=== PATIENT | female | born 1955 | race Caucasian/White ===

== ENCOUNTER → 2022-10-19 15:07 | Outpatient (BNVA) | payer MEDICARE, SELFPAY | PROVIDERS: Visit Provider Nurse Practitioner Family | DX: J06.9 Acute upper respiratory infection, unspecified (principal); R05.9 Cough, unspecified; J45.909 Unspecified asthma, uncomplicated; E78.5 Hyperlipidemia, unspecified; J30.2 Other seasonal allergic rhinitis; E55.9 Vitamin D deficiency, unspecified; F41.9 Anxiety disorder, unspecified; F32.A Depression, unspecified; E66.9 Obesity, unspecified; M81.0 Age-related osteoporosis without current pathological fracture; I10 Essential (primary) hypertension; R73.03 Prediabetes; Z12.31 Encounter for screening mammogram for malignant neoplasm of breast; G47.33 Obstructive sleep apnea (adult) (pediatric); M19.90 Unspecified osteoarthritis, unspecified site | CPT/HCPCS: 80053; 80061; 83036; 84443 ==

== ENCOUNTER 2022-11-11 13:17 | Outpatient (CLI) | payer MEDICARE, SELFPAY ==
--- NOTE | 2022-11-11 13:30 | XR_ITS ---
WS: [id number] DEXA (DUAL ENERGY X-RAY ABSORPTIOMETRY) Bone mineral density was performed using a in3Depth machine. HISTORY: screening COMPARISON: None available. Lumbar spine BMD (L1-L4): 1.329 g/cm2 T score: 1.2 Z score: 2.0 Total hip BMD: Left: 0.899 g/cm2. T score: -0.9 Z score: -0.1 Right: 0.881 g/cm2. T score: -1.0 Z score: -0.2 10 year probability of a major osteoporotic fracture is 11.9%. Mild RIGHT curvature lumbar spine. XR/XR DEXA axial skeleton* [id number] IMPRESSION: NORMAL BONE MINERAL DENSITY based upon the WHO classification for females.
--- NOTE | 2022-11-11 13:34 | MM_ITS ---
WS: [id number] Bilateral screening 3D tomosynthesis digital mammogram, 11/11/2022 Clinical Data: screening Comparison: None. Findings: The breast parenchymal pattern shows fibroglandular tissue. No spiculated masses or clustered calcifi cations are seen. There are no secondary signs of carcinoma. There are clustered dermal calcification s in the lateral aspect of the right breast at the 9:00 position. There are intact bilateral augmenta tion mammoplasty implants. MM/[place] [id number] Impression: 1. Negative bilateral mammogram with intact bilateral mammoplasty implants. 2. Recommend annual screening mammograms. BIRADS: 2-Benign FOLLOW UP: 1 Year Follow-up The CAD linen checker was used.
== END 2022-11-11 13:18 | disposition home or self-care (01) ==
LOC: RAD 13:24
PROVIDERS: Visit Provider Nurse Practitioner Family
DX: Z13.820 Encounter for screening for osteoporosis (principal); Z12.31 Encounter for screening mammogram for malignant neoplasm of breast
CPT/HCPCS: 77063; 77067; 77080

== ENCOUNTER → 2022-11-24 11:43 | Outpatient (BNVA) | payer MEDICARE, SELFPAY | PROVIDERS: PCP Nurse Practitioner Family; Visit Provider Nurse Practitioner Family | DX: N20.0 Calculus of kidney (principal); R31.9 Hematuria, unspecified | CPT/HCPCS: 74018 ==

== ENCOUNTER → 2023-01-17 13:55 | Outpatient (BNVA) | payer MEDICARE, SELFPAY | PROVIDERS: PCP Nurse Practitioner Family; Visit Provider Nurse Practitioner Family | DX: M17.12 Unilateral primary osteoarthritis, left knee (principal); M25.551 Pain in right hip; E11.9 Type 2 diabetes mellitus without complications; I10 Essential (primary) hypertension; E78.5 Hyperlipidemia, unspecified; E66.9 Obesity, unspecified | CPT/HCPCS: 73502; 73562; 80053; 80061; 83036 ==

== ENCOUNTER → 2023-07-10 11:46 | Outpatient (BNVA) | payer MEDICARE, SELFPAY | PROVIDERS: PCP Nurse Practitioner Family; Visit Provider Nurse Practitioner Family | DX: E78.5 Hyperlipidemia, unspecified (principal); F41.9 Anxiety disorder, unspecified; I10 Essential (primary) hypertension; E66.9 Obesity, unspecified; R73.03 Prediabetes | CPT/HCPCS: 80053; 80061; 83036 ==

== ENCOUNTER → 2024-01-30 08:46 | Outpatient (BNVA) | payer MEDICARE, SELFPAY | PROVIDERS: PCP Nurse Practitioner Family; Visit Provider Nurse Practitioner Family | DX: F41.9 Anxiety disorder, unspecified (principal); F32.A Depression, unspecified; I10 Essential (primary) hypertension; E78.5 Hyperlipidemia, unspecified; E66.9 Obesity, unspecified; R73.03 Prediabetes; E55.9 Vitamin D deficiency, unspecified | CPT/HCPCS: 80053; 80061; 82306; 83036; 84443; 85025 ==

== ENCOUNTER 2024-02-02 09:52 | Outpatient (CLI) | payer MEDICARE, SELFPAY ==
--- NOTE | 2024-02-02 10:00 | MM_ITS ---
WS: [id number] BILATERAL SCREENING DIGITAL TOMOSYNTHESIS MAMMOGRAM WITH CAD HISTORY: screening COMPARISON: 11/11/2022 Bilateral CC and MLO views with tomosynthesis and synthetic mammography submitted. Computer aided det ection analyzed. Breast composition: There are scattered areas of fibroglandular density. No suspicious masses, microc alcifications or architectural distortion. Lucent centered skin calcifications in the anterior inferi or RIGHT breast. IMPRESSION: MM/[place] [id number] BI-RADS: 2-Benign FOLLOW UP: 1 Year Follow-up
== END 2024-02-02 09:53 | disposition home or self-care (01) ==
LOC: RAD 09:53
PROVIDERS: PCP Nurse Practitioner Family; Visit Provider Nurse Practitioner Family
DX: Z12.31 Encounter for screening mammogram for malignant neoplasm of breast (principal); R92.323 Mammographic fibroglandular density, bilateral breasts; R92.1 Mammographic calcification found on diagnostic imaging of breast
CPT/HCPCS: 77063; 77067

== ENCOUNTER → 2024-02-12 10:22 | Outpatient (BNVA) | payer MEDICARE, SELFPAY | PROVIDERS: PCP Nurse Practitioner Family; Referring Provider Nurse Practitioner Family; Visit Provider Surgery | DX: Z12.11 Encounter for screening for malignant neoplasm of colon (principal) | CPT/HCPCS: 99024; 99204 ==

== ENCOUNTER → 2024-05-24 11:56 | Outpatient (BNVA) | payer MEDICARE, SELFPAY | PROVIDERS: PCP Nurse Practitioner Family; Visit Provider Nurse Practitioner Family | DX: I10 Essential (primary) hypertension (principal); F41.9 Anxiety disorder, unspecified; F32.A Depression, unspecified; E78.2 Mixed hyperlipidemia; R73.03 Prediabetes; E55.9 Vitamin D deficiency, unspecified; E66.9 Obesity, unspecified | CPT/HCPCS: 80053; 80061; 83036; 85025 ==

== ENCOUNTER 2024-07-10 06:31 | Day surgery (SDC) | payer MEDICARE, SELFPAY ==
[2024-07-10 06:50] VITALS: BP 166/79; PULSE 75; RESP 16; TEMP 36.1; O2SAT 95; BMI 37.9
[2024-07-10] MEDS: sodium chloride 0.9% 1,000 ML 30 ML IV (07:00)
--- NOTE | 2024-07-10 07:16 | ANES.PREANE2 ---
Pre-Anesthetic Assessment Height/Weight: Height 5 ft 3 in Weight 214 lb Temp Pulse Resp BP Pulse Ox O2 Del Method 97.0 F L 75 16 166/79 95 Room Air 07/10/24 06:50 07/10/24 06:50 07/10/24 06:50 07/10/24 06:50 07/10/24 06:50 07/10/24 06:50 Preop Diagnosis: Screening colonoscopy Operation Date: 07/10/24 07:30 Proposed Procedures p Colonoscopy - 93443, g0121, z12.11(Not Applicable) - Bob Pena, DO Was Beta Silvano taken within 24 hours: Yes Was Clonidine taken within 24 hours: N/A Last intake: Intake Last Liquid Date 07/09/24 Last Liquid Time 23:00 Last Solid Date 07/08/24 Last Solid Time 18:00 Social No alcohol and No tobacco Exam alert, oriented x 3, clear to auscultation bilaterally and regular rate & rhythm Airway Submandibular: within normal limits Cervical ROM: within normal limits Mallampati: Class IV Comments: Comments: Very limited mouth opening. Patient states that she requires fiberoptic intubation Anesthetic Plan ASA status: 3 Anesthesia: MAC Other: No prior issues with anesthesia besides very difficult intubation Completed bowel prep Uncontrolled hypertension, on metoprolol. BP 166/79 this a.m. Moderate/severe asthma. Hospitalized in May. Maintained on inhalers currently Difficult intubation noted will have fiberoptic available Labs in May reviewed and acceptable for surgery Plan for MAC anesthetic Medications/Allergies Home Medications Medication Instructions Recorded Confirmed Last Taken Type flaxseed oil 1,000 mg capsule 1,000 mg PO DAILY 10/19/22 07/10/24 07/09/24 History turmeric root extract 500 mg tablet 500 mg PO DAILY 10/19/22 07/08/24 Unknown History zinc acetate 50 mg (zinc) capsule 50 mg PO DAILY 10/19/22 07/10/24 07/09/24 History ascorbic acid (vitamin C) 1,000 mg 1 g PO Q6H 90 days #360 caps 07/07/23 07/10/24 07/09/24 Rx capsule albuterol sulfate 2.5 mg/3 mL 2.5 mg (3 mL) inhalation Q6H #180 01/30/24 07/10/24 3 Months Ago Rx (0.083 %) solution for nebulization mL ~04/09/24 cetirizine 10 mg tablet 10 mg PO DAILY PRN allergy 01/30/24 07/10/24 07/09/24 Rx symptoms 90 days #90 tabs albuterol 90 mcg-budesonide 80 2 inh inhalation 6XD PRN shortness 03/14/24 07/10/24 1 Week Ago Rx mcg/actuation HFA aerosol inhaler of breath #10.7 grams ~07/01/24 (Airsupra) atorvastatin 40 mg tablet 40 mg PO DAILY 90 days #90 tabs 04/18/24 07/10/24 07/08/24 Rx benzonatate 100 mg capsule 100 mg PO TID PRN cough #90 caps 04/18/24 07/10/24 Unknown Rx cholecalciferol (vitamin D3) 125 125 mcg PO DAILY 90 days #90 caps 04/18/24 07/10/24 07/09/24 Rx mcg (5,000 unit) capsule fluoxetine 10 mg capsule 10 mg PO DAILY 90 days #90 caps 04/18/24 07/08/24 07/08/24 Rx fluticasone fur. 100 mcg-umeclid 1 inh inhalation DAILY #60 ea 04/18/24 07/10/24 07/10/24 Rx 62.5 mcg-vilant 25 mcg inhalat.powder (Trelegy Ellipta) meloxicam 15 mg tablet 15 mg PO DAILY 90 days #90 tabs 04/18/24 07/08/24 07/06/24 Rx metoprolol tartrate 25 mg tablet 25 mg PO BID 90 days #180 tabs 04/18/24 07/10/24 07/10/24 Rx montelukast 10 mg tablet 10 mg PO DAILY 90 days #90 tabs 04/18/24 07/10/24 07/09/24 Rx raloxifene 60 mg tablet (Evista) 60 mg PO DAILY 90 days #90 tabs 04/18/24 07/10/24 07/09/24 Rx blood sugar diagnostic (Contour #100 ea 05/24/24 07/08/24 Unknown Rx Test Strips) blood-glucose meter #1 ea 05/24/24 07/08/24 Unknown Rx lancets 30 gauge (Advocate Lancet) #200 ea 05/24/24 07/08/24 Unknown Rx Allergies Allergy/AdvReac Type Severity Reaction Status Date / Time No Known Allergies Allergy Verified 02/12/24 10:24 Current Medications Generic Name Dose Route Start Last Admin Trade Name Freq PRN Reason Stop Dose Admin Sodium Chloride 1,000 mls @ 30 mls/hr 07/10/24 06:45 07/10/24 07:00 Sodium Chloride 0.9% IV 07/11/24 06:44 30 mls/hr .Q24H MAYKEL Administration PFSH Anesthesia Medical History Osteoarthritis Osteoporosis Seasonal allergies Anxiety and depression Hypertension Hyperlipidemia Social History Smoking and tobacco/nicotine status: never used tobacco/nicotine Data Anesthesia Cardiac Studies: No Data to Display
--- NOTE | 2024-07-10 07:19 | PM.HP ---
Providers/Chief Complaint Primary Care Provider: Anna Sibley NP Chief Complaint: Z12.11 History of Present Illness Debbie Saul is a 69 year old female Review of Systems General: Reports: 10 or more systems reviewed and unremarkable except in HPI and below Medications/Allergies Home Medications Medication Instructions Recorded Confirmed Last Taken Type flaxseed oil 1,000 mg capsule 1,000 mg PO DAILY 10/19/22 07/10/24 07/09/24 History turmeric root extract 500 mg tablet 500 mg PO DAILY 10/19/22 07/08/24 Unknown History zinc acetate 50 mg (zinc) capsule 50 mg PO DAILY 10/19/22 07/10/24 07/09/24 History ascorbic acid (vitamin C) 1,000 mg 1 g PO Q6H 90 days #360 caps 07/07/23 07/10/24 07/09/24 Rx capsule albuterol sulfate 2.5 mg/3 mL 2.5 mg (3 mL) inhalation Q6H #180 01/30/24 07/10/24 3 Months Ago Rx (0.083 %) solution for nebulization mL ~04/09/24 cetirizine 10 mg tablet 10 mg PO DAILY PRN allergy 01/30/24 07/10/24 07/09/24 Rx symptoms 90 days #90 tabs albuterol 90 mcg-budesonide 80 2 inh inhalation 6XD PRN shortness 03/14/24 07/10/24 1 Week Ago Rx mcg/actuation HFA aerosol inhaler of breath #10.7 grams ~07/01/24 (Airsupra) atorvastatin 40 mg tablet 40 mg PO DAILY 90 days #90 tabs 04/18/24 07/10/24 07/08/24 Rx benzonatate 100 mg capsule 100 mg PO TID PRN cough #90 caps 04/18/24 07/10/24 Unknown Rx cholecalciferol (vitamin D3) 125 125 mcg PO DAILY 90 days #90 caps 04/18/24 07/10/24 07/09/24 Rx mcg (5,000 unit) capsule fluoxetine 10 mg capsule 10 mg PO DAILY 90 days #90 caps 04/18/24 07/08/24 07/08/24 Rx fluticasone fur. 100 mcg-umeclid 1 inh inhalation DAILY #60 ea 04/18/24 07/10/24 07/10/24 Rx 62.5 mcg-vilant 25 mcg inhalat.powder (Trelegy Ellipta) meloxicam 15 mg tablet 15 mg PO DAILY 90 days #90 tabs 04/18/24 07/08/24 07/06/24 Rx metoprolol tartrate 25 mg tablet 25 mg PO BID 90 days #180 tabs 04/18/24 07/10/24 07/10/24 Rx montelukast 10 mg tablet 10 mg PO DAILY 90 days #90 tabs 04/18/24 07/10/24 07/09/24 Rx raloxifene 60 mg tablet (Evista) 60 mg PO DAILY 90 days #90 tabs 04/18/24 07/10/24 07/09/24 Rx blood sugar diagnostic (Contour #100 ea 05/24/24 07/08/24 Unknown Rx Test Strips) blood-glucose meter #1 ea 05/24/24 07/08/24 Unknown Rx lancets 30 gauge (Advocate Lancet) #200 ea 05/24/24 07/08/24 Unknown Rx Allergies Allergy/AdvReac Type Severity Reaction Status Date / Time No Known Allergies Allergy Verified 02/12/24 10:24 PFSH Acute PFSH: Medical History Osteoarthritis Osteoporosis Seasonal allergies Anxiety and depression Hypertension Hyperlipidemia Social History Smoking and tobacco/nicotine status: never used tobacco/nicotine Vitals/I&O/Wt Last Vital Signs Temp 97.0 F L 07/10/24 06:50 Pulse 75 07/10/24 06:50 Resp 16 07/10/24 06:50 BP 166/79 07/10/24 06:50 Pulse Ox 95 07/10/24 06:50 O2 Del Method Room Air 07/10/24 06:50 Weight last 48 hrs Weight 214 lb A&P Assessment and plan (1) Colon cancer screening: Plan Colonoscopy Attestations Medical Necessity Statement*: Home Coding Level of Care Code Acute Code for Chg Fwd Diagnoses Colon cancer screening Z12.11
[2024-07-10 07:47] VITALS: BP 124/66; PULSE 64; RESP 18; TEMP 36.6; O2SAT 96
--- NOTE | 2024-07-10 07:49 | ANE.PACU2 ---
Inpatient post-anesthesia follow up: Airway intact: Yes Vital signs: Temperature 97.9 F Pulse Rate 64 Respiratory Rate 18 Blood Pressure 124/66 Pulse Oximetry 96 Oxygen Delivery Me thod Room Air Oxygen Flow Rate Fraction of Inspir ed Oxygen Hydration adequate: Yes Nausea and vomiting: No Pain level: 1 Mental status: Baseline
[2024-07-10 07:58] VITALS: BP 132/61; PULSE 68; RESP 18; O2SAT 93
[2024-07-10 08:07] VITALS: BP 141/65; PULSE 63; RESP 18; O2SAT 95
== END 2024-07-10 08:20 | disposition home or self-care (01) ==
PROVIDERS: PCP Nurse Practitioner Family; Visit Provider Surgery
PROC: 0DJD8ZZ Inspection of Lower Intestinal Tract, Via Natural or Artificial Opening Endoscopic (ICD-10-PCS; CPT 45378; principal; 2024-07-10 07:30)
DX: Z12.11 Encounter for screening for malignant neoplasm of colon (principal); D12.2 Benign neoplasm of ascending colon; K51.40 Inflammatory polyps of colon without complications; M19.90 Unspecified osteoarthritis, unspecified site; M81.0 Age-related osteoporosis without current pathological fracture; F41.9 Anxiety disorder, unspecified; F32.A Depression, unspecified; I10 Essential (primary) hypertension; E78.5 Hyperlipidemia, unspecified; J45.909 Unspecified asthma, uncomplicated
CPT/HCPCS: 45385; 88305; J0360; J2704; J7030

== ENCOUNTER → 2024-07-22 14:48 | Outpatient (BNVA) | payer MEDICARE, SELFPAY | PROVIDERS: PCP Nurse Practitioner Family; Visit Provider Surgery | DX: Z09 Encounter for follow-up examination after completed treatment for conditions other than malignant neoplasm (principal); D37.4 Neoplasm of uncertain behavior of colon | CPT/HCPCS: 99214 ==